=== PATIENT | male | born 1970 | race American Indian/Alaskan Native ===

== ENCOUNTER 2018-12-22 13:14 | Emergency (ER) | payer MEDICARE, OTHER ==
--- NOTE | 2018-12-22 14:14 | Emergency Department Report ---
ED General Adult HPI - General Chief complaint: Seizure Stated complaint: SEIZURE Time Seen by Provider: 12/22/18 14:09 Source: EMS Mode of arrival: Ambulatory Limitations: No Limitations - History of Present Illness Initial comments: 48-year-old male with history of CVA and a history of right-sided paralysis and loss of speech presents after father brought him to emergency department after patient fell out of chair after having a seizure episode. According to the patient's father patient has no prior history of seizure. Patient per father had a seizure was lasted 1-2 minutes and patient is laying on the floor shaking with blood, small. Patient had no fever prior. Patient was on his RIGHT side when he fell. Severity scale (0 -10): 0 - Related Data Allergies Allergy/AdvReac Type Severity Reaction Status Date / Time No Known Allergies Allergy Verified 12/22/18 14:20 ED Review of Systems ROS: Stated complaint: SEIZURE Other details as noted in HPI Comment: uNOBTAINABLE (SECONDARY TO PATIENT'S NON verbal status) Constitutional: denies: chills, fever Eyes: denies: eye pain, eye discharge, vision change ENT: denies: ear pain, throat pain Respiratory: denies: cough, shortness of breath, wheezing Cardiovascular: denies: chest pain, palpitations Endocrine: no symptoms reported Gastrointestinal: denies: abdominal pain, nausea, diarrhea Genitourinary: denies: urgency, dysuria Musculoskeletal: denies: back pain, joint swelling, arthralgia Skin: denies: rash, lesions Neurological: other (seizure) Psychiatric: denies: anxiety, depression Hematological/Lymphatic: denies: easy bleeding, easy bruising ED Past Medical Hx - Past Medical History Previous Medical History?: Yes Hx Hypertension: No Hx CVA: Yes Hx Heart Attack/AMI: No Hx Congestive Heart Failure: No Hx Diabetes: No Hx Deep Vein Thrombosis: No Hx Pulmonary Embolism: No Hx GERD: No Hx Liver Disease: No Hx Renal Disease: No Hx of Cancer: No Hx Sickle Cell Disease: No Hx Arthritis: No Hx Headaches / Migraines: No Hx Seizures: Yes Hx Kidney Stones: No Hx Psychiatric Treatment: No Hx Asthma: No Hx COPD: No Hx Tuberculosis: No Hx Dementia: No Hx HIV: No - Surgical History Past Surgical History?: No Hx Coronary Stent: No Hx Open Heart Surgery: No Hx Pacemaker: No Hx Internal Defibrillator: No Hx Cholecystectomy: No Hx Appendectomy: No Hx Breast Surgery: No - Social History Smoking Status: Never Smoker Substance Use Type: None ED Physical Exam - General Limitations: No Limitations General appearance: alert, in no apparent distress - Head Head exam: Present: normocephalic, other (ecchymosis noted in the right temporal region) - Eye Eye exam: Present: normal appearance - ENT ENT exam: Present: mucous membranes moist - Neck Neck exam: Present: normal inspection - Respiratory Respiratory exam: Present: normal lung sounds bilaterally. Absent: respiratory distress - Cardiovascular Cardiovascular Exam: Present: regular rate, normal rhythm. Absent: systolic murmur, diastolic murmur, rubs, gallop - GI/Abdominal GI/Abdominal exam: Present: soft, normal bowel sounds - Rectal Rectal exam: Present: deferred - Extremities Exam Extremities exam: Present: other (amputation of right lower extremity) - Back Exam Back exam: Present: normal inspection - Neurological Exam Neurological exam: Present: alert - Expanded Neurological Exam Expanded Neurological exam: Present: total aphasia, other Patient oriented to: Absent: person, place, time Motor strength exam: RUE: 3 (pateint has residual neuro deficit), LUE: 5, LLE: 5 Best Eye Response ([place]): (4) open spontaneously Best Motor Response ([place]): (6) obeys commands Best Verbal Response ([place]): (1) no verbal response [place] Total: 11 - Psychiatric Psychiatric exam: Present: normal affect, normal mood - Skin Skin exam: Present: warm, dry, intact, normal color. Absent: rash ED Course Vital Signs 12/22/18 12/22/18 13:41 18:03 Temperature 98.2 F Pulse Rate 70 58 L Respiratory 12 16 Rate Blood Pressure 92/61 Blood Pressure 98/61 115/61 [Right] O2 Sat by Pulse 100 97 Oximetry ED Medical Decision Making - Lab Data Result diagrams: 12/22/18 16:42 12/22/18 16:42 - Medical Decision Making Patient given IV fluids while here in emergency department. Patient given Keppra therapy. Patient has had no subsequent seizure activity while here in emergency department. Patient to be discharged to follow up with neurology as an outpatient. - Differential Diagnosis Dehydration; INtracranial bleed; Intracranial Mass; Rhabdomyolysis Critical care attestation.: If time is entered above; I have spent that time in minutes in the direct care of this critically ill patient, excluding procedure time. ED Disposition Clinical Impression: Seizure Disposition: DC-01 TO HOME OR SELFCARE Is pt being admited?: No Does the pt Need Aspirin: No Condition: Stable Instructions: Epilepsy (ED) Referrals: PRIMARY CARE, [Primary Care Provider] - 3-5 Days LEOPOLDO DILLARD MD [Staff Physician] - 3-5 Days Time of Disposition: 18:10 Print Language: PASHTO
[2018-12-22] MEDS ORDERED: DILAUDID IV ONE (14:15)
[2018-12-22] MEDS ORDERED: BENADRYL IV ONE (14:15)
[2018-12-22] MEDS ORDERED: KEPPRA 1,000 MG/NS 0.75% 100ML 1,000 MG/100 ML BAG IV ONE (14:33)
[2018-12-22] MEDS ORDERED: NACL 0.9% 1000 ML 1,000 ML IV ONE (14:33)
[2018-12-22] MEDS ORDERED: DILAUDID ONE (15:04)
[2018-12-22] MEDS ORDERED: BENADRYL ONE (15:04)
--- NOTE | 2018-12-22 16:00 | Cat Scan Report ---
CT HEAD WITHOUT CONTRAST INDICATION : seizure. TECHNIQUE: Axial imaging performed from the skull apex through the skull base without the use of con trast. Sagittal and coronal reformatted images. All CT scans at this location are performed using C T dose reduction for ALARA by means of automated exposure control. COMPARISON: None FINDINGS: Parenchyma: A large chronic infarct is identified throughout the left MCA distribution measuring up to 11 x 4 cm in axial plane. The remaining brain parenchyma demonstrates normal attenuation. No evide nce for hemorrhage, mass or extra-axial fluid collection. Ventricles: Ventricles are normal in size and appear symmetric. Bones: No acute osseous abnormality. Sinuses: Sinuses and mastoid air cells are clear. Soft tissues: Soft tissues including the orbits appear normal. IMPRESSION: Large chronic left MCA infarct. No acute intracranial process is identified. Signer Name: Bahman Rubin Jr, MD Signed: 12/22/2018 3:55 PM Workstation Name: [id number]
--- NOTE | 2018-12-22 16:21 | Cat Scan Report ---
CT FACE WITHOUT CONTRAST INDICATION: Facial pain. History of seizure. COMPARISON: No relevant prior imaging study available. TECHNIQUE: Axial, coronal and sagittal noncontrast CT imaging of the face was performed. All CT scans at this location are performed using CT dose reduction for ALARA by means of automated exposure cont rol. FINDINGS: Facial bones: No fracture or other significant abnormality. Paranasal sinuses: Multiple retention cyst/polyps are seen throughout the sinuses, particularly the r ight maxillary sinus. The mastoid air cells are clear. Orbits: No significant abnormality. Visualized images of the intracranial space: No significant abnormality. Additional findings: A large area of encephalomalacia is seen along the left cerebral hemisphere. IMPRESSION: 1. No acute abnormality of the face. 2. Additional findings as above. Signer Name: Romeo Singh MD Signed: 12/22/2018 4:17 PM Workstation Name: [id number]
[2018-12-22 16:52] LABS: Hematocrit 40.9 % (35.5-45.6); Hemoglobin 13.8 gm/dl (11.8-15.2); Mean Corpuscular HGB Conc 34 % (32-34); Mean Corpuscular Volume 89 fl (84-94); Platelet Count 237 K/mm3 (140-440); Red Cell Distribution Width 13.8 % (13.2-15.2)
[2018-12-22 17:17] LABS: Alanine Aminotransferase 9 units/L (7-56); Albumin 3.9 g/dL (3.9-5); BUN/Creatinine Ratio 16; Blood Urea Nitrogen 11 mg/dL (9-20); Calcium 8.8 mg/dL (8.4-10.2); Hemolysis Index 7
[2018-12-22 18:04] VITALS: BP 115/61
== END 2018-12-22 19:10 | disposition home or self-care (01) ==
LOC: ED 13:14
DX: R56.9 Unspecified convulsions (principal)
CPT/HCPCS: 36415; 70450; 70486; 80053; 82550; 85027; 96365; 99284; J1170; J1200; J1953; J7030; 80320; G0480

== ENCOUNTER 2019-04-05 20:01 | Observation (INO) | payer MEDICARE ==
[2019-04-05 20:57] LABS: Basophils # (Auto) 0.1 K/mm3 (0.0-0.1); Basophils % (Auto) 1.2 % (0.0-1.8); Eosinophils # (Auto) 0.1 K/mm3 (0.0-0.4); Eosinophils % (Auto) 0.5 % (0.0-4.3); Hematocrit 42.8 % (35.5-45.6); Hemoglobin 14.7 gm/dl (11.8-15.2); Lymphocytes # (Auto) 2.7 K/mm3 (1.2-5.4); Lymphocytes % (Auto) 26.4 % (13.4-35.0); Mean Corpuscular HGB Conc 34 % (32-34); Mean Corpuscular Volume 92 fl (84-94); Monocytes # (Auto) 0.5 K/mm3 (0.0-0.8); Monocytes % (Auto) 4.6 % (0.0-7.3); Platelet Count 341 K/mm3 (140-440); Red Blood Count 4.64 M/mm3 (3.65-5.03); Red Cell Distribution Width 13.2 % (13.2-15.2)
--- NOTE | 2019-04-05 21:13 | Consultation ---
History of Present Illness Consult date: 04/05/19 History of present illness: [facility] Date of Service: 04/05/2019 20:35:36 Impression: Seizure, not compliance with his Keppra Comments: Patient presented with his father in ambulance as he was on the floor when the father found him on the floor, he has hx of seizures. Last seizure was a month ago, he takes Keppra. Father said he missed his keppra and he does miss them regularly. Patient at baseline is aphasic and has right side weakness from old stroke in 2008 - Recommend load with Keppra 1500 mg now and continue home meds. - Seizure precautions. Metrics: Last Known Well: 04/05/2019 18:00:00 [facility] Notification Time: 04/05/2019 20:34:56 Arrival Time: 04/05/2019 20:20:00 Stamp Time: 04/05/2019 20:35:36 Time First Login Attempt: 04/05/2019 20:43:00 Video Start Time: 04/05/2019 20:43:00 Symptoms: sz NIHSS Start Assessment Time: 04/05/2019 20:54:00 Patient is not a candidate for tPA. Patient was not deemed candidate for tPA thrombolytics because of no new focal deficit. . Video End Time: 04/05/2019 21:02:20 CT head showed no acute hemorrhage or acute core infarct. CT head was reviewed. Presentation is not suggestive of Large Vessel Occlusive disease. ED Physician notified of diagnostic impression and management plan on 04/05/2019 21:02:21 Our recommendations are outlined below. Recommendations: Activate Stroke Protocol Admission/Order Set Stroke/Telemetry Floor Neuro Checks Bedside Swallow Eval DVT Prophylaxis IV Fluids, Normal Saline Head of Bed Below 30 Degrees Euglycemia and Avoid Hyperthermia (PRN Acetaminophen) Lipid Panel to Be Obtained, if Not Done in the Last Three Months Disposition: Follow up with Teleneurology Follow up Sign Out: Discussed with Emergency Department Provider History of Present Illness: Patient is a 48 year old Male. Patient was brought by EMS for symptoms of sz Patient presented with his father in ambulance as he was on the floor when the father found him on the floor, he has hx of seizures. Last seizure was a month ago, he takes Keppra. Father said he missed his keppra and he does miss them regularly. Patient at baseline is aphasic and has right side weakness from old stroke in 2007 CT head showed no acute hemorrhage or acute core infarct. CT head was reviewed. Examination: 1A: Level of Consciousness - Alert; keenly responsive + 0 1B: Ask Month and Age - Aphasic + 2 1C: Blink Eyes & Squeeze Hands - Performs Both Tasks + 0 2: Test Horizontal Extraocular Movements - Normal + 0 3: Test Visual Zee - No Visual Loss + 0 4: Test Facial Palsy (Use Grimace if Obtunded) - Normal symmetry + 0 5A: Test Left Arm Motor Drift - No Drift for 10 Seconds + 0 5B: Test Right Arm Motor Drift - No Effort Against [place] + 3 6A: Test Left Leg Motor Drift - No Drift for 5 Seconds + 0 6B: Test Right Leg Motor Drift - No Effort Against [place] + 3 7: Test Limb Ataxia (FNF/Heel-Roe) - No Ataxia + 0 8: Test Sensation - Normal; No sensory loss + 0 9: Test Language/Aphasia - Mute/Global Aphasia: No Usable Speech/Auditory Comprehension + 3 10: Test Dysarthria - Intubated/Unable to Test + 0 11: Test Extinction/Inattention - No abnormality + 0 NIHSS Score: 11 Patient was informed the Neurology Consult would happen via TeleHealth consult by way of interactive audio and video telecommunications and consented to receiving care in this manner. Due to the immediate potential for life-threatening deterioration due to underlying acute neurologic illness, I spent 35 minutes providing critical care. This time includes time for face to face visit via telemedicine, review of medical records, imaging studies and discussion of findings with providers, the patient and/or family. Dr Cesar [facility] Case [id number] Medications and Allergies Allergies Allergy/AdvReac Type Severity Reaction Status Date / Time No Known Allergies Allergy Verified 12/22/18 14:20 Home Medications Medication Instructions Recorded Confirmed Last Taken Type levETIRAcetam [Keppra] 500 mg PO BID #60 udc 12/22/18 Unknown Rx Physical Examination - Vital Signs Vital Signs: Vital Signs Temp Pulse Resp BP Pulse Ox 97.8 F 76 14 97/62 97 04/05/19 20:26 04/05/19 20:26 04/05/19 20:26 04/05/19 20:26 04/05/19 20:26 Results - Laboratory Findings CBC and BMP: 04/05/19 20:34
[2019-04-05 21:15] LABS: INR 1.08 (0.87-1.13)
[2019-04-05 21:16] LABS: Partial Thromboplastin Time 25.3 Sec. (24.2-36.6); Thrombin Time 15.5 Sec. (15.1-19.6)
[2019-04-05 21:17] LABS: Creatine Kinase MB 4.6 ng/mL (0.0-4.0)
[2019-04-05 21:19] LABS: Alanine Aminotransferase 11 units/L (7-56); Albumin 4.4 g/dL (3.9-5); BUN/Creatinine Ratio 12; Blood Urea Nitrogen 12 mg/dL (9-20); Calcium 9.6 mg/dL (8.4-10.2); Hemolysis Index 8
--- NOTE | 2019-04-05 21:28 | Cat Scan Report ---
CT head/brain wo con INDICATION / CLINICAL INFORMATION: 48 years Male; Stroke symptoms. TECHNIQUE: Routine CT head without contrast. All CT scans at this location are performed using CT dos e reduction for ALARA by means of automated exposure control. COMPARISON: The study is compared to the previous CT of 12/22/2018. FINDINGS: BRAIN / INTRACRANIAL CONTENTS: There is persistent old left MCA infarct with extensive encephalomalac ia which correlates with the previous study. There is associated mild ex vacuo dilatation of the left lateral ventricle. There is no clear CT evidence of acute intracranial hemorrhage or significant mas s effect. There is notable layering degeneration involving the left cerebral peduncle. ORBITS: No significant abnormality of visualized orbits. SINUSES / MASTOIDS: There is mild focal opacification within the posterior right ethmoid, left spheno id and inferior right maxillary sinuses. CRANIOCERVICAL JUNCTION: No significant abnormality. ADDITIONAL FINDINGS: None. IMPRESSION: 1. There is a persistent large old left MCA infarct with extensive encephalomalacia as described. 2. There is no CT ends of acute intracranial hemorrhage. The study was specified as code stroke and called emergently to the ER at 8:26 PM [facility] standard [facility]. Signer Name: Lito Rodriguez MD Signed: 04/05/2019 9:23 PM Workstation Name: [id number]
--- NOTE | 2019-04-05 22:55 | History and Physical Report ---
Medications and Allergies Allergies Allergy/AdvReac Type Severity Reaction Status Date / Time No Known Allergies Allergy Verified 12/22/18 14:20 Home Medications Medication Instructions Recorded Confirmed Last Taken Type levETIRAcetam [Keppra] 500 mg PO BID #60 c 12/22/18 Unknown Rx Exam - Constitutional Vitals: Temp Pulse Resp BP Pulse Ox 97.8 F 76 14 97/62 97 04/05/19 20:26 04/05/19 20:26 04/05/19 20:26 04/05/19 20:26 04/05/19 20:26 Results - Labs CBC & Chem 7: 04/05/19 20:34 04/05/19 20:34 Labs: Abnormal lab results 04/05/19 Range/Units 20:34 Sodium 134 L (137-145) mmol/L Potassium 3.4 L (3.6-5.0) mmol/L Chloride 94.1 L (98-107) mmol/L Carbon Dioxide 19 L (22-30) mmol/L Glucose 198 H (75-100) mg/dL Total Creatine Kinase 306 H (55-170) units/L CK-MB (CK-2) 4.6 H (0.0-4.0) ng/mL
--- NOTE | 2019-04-05 23:38 | Emergency Department Report ---
ED Altered Mental Status HPI - General Chief Complaint: Seizure Stated Complaint: SEIZURE Time Seen by Provider: 04/05/19 20:24 Source: patient Mode of arrival: Ambulatory Limitations: Physical Limitation - History of Present Illness Initial Comments: This is a 48-year-old male that presents with right-sided weakness and altered status. As per father patient had a syncopal episode and believes that it may be a seizure. Father stated that patient does have history of stroke. Father also stated that patient has not been taking his Keppra. Denies any other complaints or injuries. Denies any recent travels. Denies any vomiting. Currently the patient is alert with some altered mental status. Patient denies any chest pain, shortness of breath, fever, chills, nausea vomiting. Patient does have a history of stroke with left-sided weakness as well as unable to communicate. MD Complaint: altered mental status, confusion -: This afternoon Associated Symptoms: syncope. denies: chest pain, cough, diaphoresis, fever/chills, headaches, loss of appetite, malaise, nausea/vomiting, rash, seizure, shortness of breath, weakness, foul smelling urine, difficulty walking, diarrhea, incontinence - Related Data Previous Rx's Medication Instructions Recorded Last Taken Type levETIRAcetam [Keppra] 500 mg PO BID #60 udc 12/22/18 Unknown Rx Allergies Allergy/AdvReac Type Severity Reaction Status Date / Time No Known Allergies Allergy Verified 12/22/18 14:20 ED Review of Systems ROS: Stated complaint: SEIZURE Other details as noted in HPI Constitutional: denies: fever ENT: denies: throat pain, congestion Respiratory: denies: cough, shortness of breath, wheezing Cardiovascular: denies: chest pain Gastrointestinal: denies: vomiting ED Past Medical Hx - Past Medical History Previous Medical History?: Yes Hx Hypertension: No Hx CVA: Yes Hx Heart Attack/AMI: No Hx Congestive Heart Failure: No Hx Diabetes: No Hx Deep Vein Thrombosis: No Hx Pulmonary Embolism: No Hx GERD: No Hx Liver Disease: No Hx Renal Disease: No Hx Sickle Cell Disease: No Hx Arthritis: No Hx Headaches / Migraines: No Hx Seizures: Yes Hx Kidney Stones: No Hx Psychiatric Treatment: No Hx Asthma: No Hx COPD: No Hx Tuberculosis: No Hx Dementia: No Hx HIV: No - Surgical History Past Surgical History?: Yes Hx Coronary Stent: No Hx Open Heart Surgery: No Hx Pacemaker: No Hx Internal Defibrillator: No Hx Cholecystectomy: No Hx Appendectomy: No Hx Breast Surgery: No - Social History Smoking Status: Unknown if ever smoked - Medications Home Medications: Home Medications Medication Instructions Recorded Confirmed Last Taken Type levETIRAcetam [Keppra] 500 mg PO BID #60 c 12/22/18 Unknown Rx ED Physical Exam - General Limitations: Physical Limitation General appearance: alert - Head Head exam: Present: atraumatic - Eye Eye exam: Present: normal appearance, PERRL, EOMI - Neck Neck exam: Present: normal inspection, full ROM. Absent: tenderness, meningismus, lymphadenopathy - Respiratory Respiratory exam: Present: normal lung sounds bilaterally. Absent: respiratory distress, wheezes, rales, rhonchi, stridor, chest wall tenderness, accessory muscle use, decreased breath sounds, prolonged expiratory - Cardiovascular Cardiovascular Exam: Present: regular rate, normal rhythm, normal heart sounds. Absent: irregular rhythm, systolic murmur, diastolic murmur, rubs, gallop - GI/Abdominal GI/Abdominal exam: Present: soft, rigid, normal bowel sounds. Absent: distended, tenderness, guarding, rebound - Extremities Exam Extremities exam: Present: normal capillary refill, other (right sided weakness) - Neurological Exam Neurological exam: Present: alert, altered - Skin Skin exam: Present: warm, dry, intact, normal color. Absent: rash - Assessment Assessment Interval: Baseline - Level of Consciousness 1a. Level of Consciousness: alert/keenly responsive - LOC Questions 1b. LOC Questions: aphasic - LOC Command 1c. LOC Commands: performs tasks correctly - Best Gaze 2. Best Gaze: normal - Visual 3. Visual: no visual loss - Facial Palsy 4. Facial Palsy: normal symmetrical movement - Motor Arm 5a. Motor Arm Left: no drift 5b. Motor Arm Right: no drift - Motor Leg 6a. Motor Leg Left: no gravity effort 6b. Motor Leg Right: no gravity effort - Limb Ataxia 7. Limb Ataxia: absent - Sensory 8. Sensory: normal - Best Language 9. Best Language: mute/global aphasia - Dysarthria 10. Dysarthria: normal - Extinction and Inattention 11. Extinction/Inattention: no abnormality - Scoring Total Score: 11 Stroke Severity: Moderate Stroke ED Course Vital Signs 04/05/19 04/05/19 04/05/19 20:22 20:26 20:30 Temperature 97.8 F Pulse Rate 76 77 Respiratory 14 14 Rate Blood Pressure 97/62 103/53 O2 Sat by Pulse 94 97 95 Oximetry 04/05/19 04/05/19 04/05/19 20:33 21:01 21:30 Temperature Pulse Rate 83 75 Respiratory 16 14 21 Rate Blood Pressure 126/73 113/74 O2 Sat by Pulse 98 100 94 Oximetry 04/05/19 04/05/19 04/05/19 22:00 22:30 23:00 Temperature Pulse Rate 66 70 74 Respiratory 20 17 14 Rate Blood Pressure 122/77 121/76 101/70 O2 Sat by Pulse 96 96 Oximetry 04/05/19 04/06/19 04/06/19 23:30 00:00 00:21 Temperature Pulse Rate 72 70 71 Respiratory 19 18 17 Rate Blood Pressure 98/64 103/64 103/64 O2 Sat by Pulse 90 Oximetry 04/06/19 04/06/19 04/06/19 00:31 00:41 00:51 Temperature Pulse Rate 70 71 80 Respiratory 17 20 13 Rate Blood Pressure 112/70 112/70 112/70 O2 Sat by Pulse Oximetry 04/06/19 04/06/19 01:00 01:10 Temperature Pulse Rate 73 80 Respiratory 20 18 Rate Blood Pressure 105/63 105/63 O2 Sat by Pulse Oximetry - Lab Data Result diagrams: 04/05/19 20:34 04/05/19 20:34 Lab Results 04/05/19 04/05/19 04/05/19 Range/Units 20:34 20:34 20:34 WBC 10.1 (4.5-11.0) K/mm3 RBC 4.64 (3.65-5.03) M/mm3 Hgb 14.7 (11.8-15.2) gm/dl Hct 42.8 (35.5-45.6) % MCV 92 (84-94) fl MCH 32 (28-32) pg MCHC 34 (32-34) % RDW 13.2 (13.2-15.2) % Plt Count 341 (140-440) K/mm3 Lymph % (Auto) 26.4 (13.4-35.0) % [place] % (Auto) 4.6 (0.0-7.3) % Eos % (Auto) 0.5 (0.0-4.3) % Baso % (Auto) 1.2 (0.0-1.8) % Lymph # 2.7 (1.2-5.4) K/mm3 [place] # 0.5 (0.0-0.8) K/mm3 Eos # 0.1 (0.0-0.4) K/mm3 Baso # 0.1 (0.0-0.1) K/mm3 Seg Neutrophils % 67.3 (40.0-70.0) % Seg Neutrophils # 6.8 (1.8-7.7) K/mm3 PT 14.1 (12.2-14.9) Sec. INR 1.08 (0.87-1.13) APTT 25.3 (24.2-36.6) Sec. Thrombin Time 15.5 (15.1-19.6) Sec. Sodium 134 L (137-145) mmol/L Potassium 3.4 L (3.6-5.0) mmol/L Chloride 94.1 L (98-107) mmol/L Carbon Dioxide 19 L (22-30) mmol/L Anion Gap 24 mmol/L BUN 12 (9-20) mg/dL Creatinine 1.0 (0.8-1.5) mg/dL Estimated GFR > 60 ml/min BUN/Creatinine Ratio 12 % Glucose 198 H (75-100) mg/dL Calcium 9.6 (8.4-10.2) mg/dL Total Bilirubin 0.30 (0.1-1.2) mg/dL AST 18 (5-40) units/L ALT 11 (7-56) units/L Alkaline Phosphatase 106 (35-129) units/L Total Creatine Kinase 306 H (55-170) units/L CK-MB (CK-2) 4.6 H (0.0-4.0) ng/mL CK-MB (CK-2) Rel Index 1.5 (0-4) Troponin T < 0.010 (0.00-0.029) ng/mL Total Protein 7.8 (6.3-8.2) g/dL Albumin 4.4 (3.9-5) g/dL Albumin/Globulin Ratio 1.3 % Plasma/Serum Alcohol (0-0.07) % 04/05/19 Range/Units 20:34 WBC (4.5-11.0) K/mm3 RBC (3.65-5.03) M/mm3 Hgb (11.8-15.2) gm/dl Hct (35.5-45.6) % MCV (84-94) fl MCH (28-32) pg MCHC (32-34) % RDW (13.2-15.2) % Plt Count (140-440) K/mm3 Lymph % (Auto) (13.4-35.0) % [place] % (Auto) (0.0-7.3) % Eos % (Auto) (0.0-4.3) % Baso % (Auto) (0.0-1.8) % Lymph # (1.2-5.4) K/mm3 [place] # (0.0-0.8) K/mm3 Eos # (0.0-0.4) K/mm3 Baso # (0.0-0.1) K/mm3 Seg Neutrophils % (40.0-70.0) % Seg Neutrophils # (1.8-7.7) K/mm3 PT (12.2-14.9) Sec. INR (0.87-1.13) APTT (24.2-36.6) Sec. Thrombin Time (15.1-19.6) Sec. Sodium (137-145) mmol/L Potassium (3.6-5.0) mmol/L Chloride (98-107) mmol/L Carbon Dioxide (22-30) mmol/L Anion Gap mmol/L BUN (9-20) mg/dL Creatinine (0.8-1.5) mg/dL Estimated GFR ml/min BUN/Creatinine Ratio % Glucose (75-100) mg/dL Calcium (8.4-10.2) mg/dL Total Bilirubin (0.1-1.2) mg/dL AST (5-40) units/L ALT (7-56) units/L Alkaline Phosphatase (35-129) units/L Total Creatine Kinase (55-170) units/L CK-MB (CK-2) (0.0-4.0) ng/mL CK-MB (CK-2) Rel Index (0-4) Troponin T (0.00-0.029) ng/mL Total Protein (6.3-8.2) g/dL Albumin (3.9-5) g/dL Albumin/Globulin Ratio % Plasma/Serum Alcohol < 0.01 (0-0.07) % - Medical Decision Making 48-year-old male that presents with suspected stroke. Patient is stable and was examined by me and Dr. Rocha. Labs obtained. CT scan obtained. Neurologist has been consulted and agrees for admission. Patient is admitted with Dr. Kraus (hospitalist). As per neurologist Recommendations: Activate Stroke Protocol Admission/Order Set Stroke/Telemetry Floor Neuro Checks Bedside Swallow Eval DVT Prophylaxis IV Fluids, Normal Saline Head of Bed Below 30 Degrees Euglycemia and Avoid Hyperthermia (PRN Acetaminophen) At time of admission, the patient does not seem toxic or ill in appearance. No acute signs of distress noted. Critical care attestation.: If time is entered above; I have spent that time in minutes in the direct care of this critically ill patient, excluding procedure time. ED Disposition Clinical Impression: CVA (cerebral vascular accident) Qualifiers: CVA mechanism: unspecified Qualified Code(s): I63.9 - Cerebral infarction, unspecified Disposition: DC-09 OP ADMIT IP TO THIS HOSP Is pt being admited?: Yes Condition: Stable
--- NOTE | 2019-04-05 23:39 | History and Physical Report ---
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 History is per the dad who states that the patient slid out of the chair and he found him on the floor. He states that the patient had a seizure and he could tell from his appearance that he was a little confused. There was no loss of consciousness. He stated that the patient has not been taking his Keppra. He was loaded with Keppra in the emergency room, seen by neurology who recommended that the patient get a stroke work-up. Review of systems is unobtainable PAST MEDICAL HISTORY: CVA with residual right-sided weakness and aphasia, seizure PAST SURGICAL HISTORY: Right leg amputation SOCIAL HISTORY: denies a tobacco, drugs, alcohol FAMILY HISTORY:Hypertension Medications and Allergies Allergies Allergy/AdvReac Type Severity Reaction Status Date / Time No Known Allergies Allergy Verified 12/22/18 14:20 Home Medications Medication Instructions Recorded Confirmed Last Taken Type levETIRAcetam [Keppra] 500 mg PO BID #60 c 12/22/18 Unknown Rx Active Meds: Active Medications Enoxaparin Sodium (Enoxaparin) 40 mg SUB-Q QDAY@1000 ADAM Exam - Physical Exam Narrative exam: Gen. appearance: Patient lying in bed, no apparent distress HEENT: Normocephalic, atraumatic, pupils equally round and reactive to light, eyes are , extraocular movement intact, and no sclericterus,. No JVD or thyrom egaly or nodule,neck supple, no carotid bruit ,mucous membranes moist, no exudate or erythema Heart: S1, S2, regular rate and rhythm Lungs: Clear bilaterally, breathing comfortable Abdomen: Positive bowel sounds, non-tender, nondistended, no organomegaly Extremity:right leg amptutation, no edema cyanosis, clubbing Skin: no rash, dry, warm Neuro: Cranial nerves 2-12 intact, motor- LUE/LLE 5/5, right side weakness and no sensory intact - Constitutional Vitals: Temp Pulse Resp BP Pulse Ox 97.8 F 76 14 97/62 97 04/05/19 20:26 04/05/19 20:26 04/05/19 20:26 04/05/19 20:26 04/05/19 20:26 Results - Labs CBC & Chem 7: 04/05/19 20:34 04/05/19 20:34 Labs: Abnormal lab results 04/05/19 Range/Units 20:34 Sodium 134 L (137-145) mmol/L Potassium 3.4 L (3.6-5.0) mmol/L Chloride 94.1 L (98-107) mmol/L Carbon Dioxide 19 L (22-30) mmol/L Glucose 198 H (75-100) mg/dL Total Creatine Kinase 306 H (55-170) units/L CK-MB (CK-2) 4.6 H (0.0-4.0) ng/mL - Imaging and Cardiology CT Scan - head: report reviewed Assessment and Plan Assessment Possible seizure, acute on chronic Continue Keppra, IV Ativan as needed obtain MRI as recommended by neurology The patient has no new neurological symptoms Consult inpatient neurology, physical therapy start aspirin, statin, continue outpatient medications H/O cva complicated by right right sided weakness and aphasia, stable DVT prophylaxis
[2019-04-05] MEDS ORDERED: ONDANSETRON 4 MG/2 ML INJ IV PRN (23:40)
[2019-04-05] MEDS ORDERED: ACETAMINOPHEN 325 MG TAB PO PRN (23:40)
[2019-04-06 07:37] LABS: Basophils % (Auto) 0.2 % (0.0-1.8); Eosinophils % (Auto) 0.1 % (0.0-4.3); Hematocrit 43.8 % (35.5-45.6); Hemoglobin 14.7 gm/dl (11.8-15.2); Lymphocytes # (Auto) 1.9 K/mm3 (1.2-5.4); Lymphocytes % (Auto) 19.3 % (13.4-35.0); Mean Corpuscular HGB Conc 34 % (32-34); Mean Corpuscular Volume 92 fl (84-94); Monocytes % (Auto) 10.1 % (0.0-7.3); Platelet Count 258 K/mm3 (140-440); Red Blood Count 4.78 M/mm3 (3.65-5.03); Red Cell Distribution Width 13.1 % (13.2-15.2)
[2019-04-06 08:21] LABS: BUN/Creatinine Ratio 14; Blood Urea Nitrogen 11 mg/dL (9-20); Calcium 9.1 mg/dL (8.4-10.2); Hemolysis Index 86
[2019-04-06] MEDS: ASPIRIN 325 MG TAB PO SCH (09:29)
[2019-04-06] MEDS: levETIRAcetam 500 MG/5 ML ORAL LIQD PO SCH ×2 (09:29→21:23)
[2019-04-06] MEDS: ENOXAPARIN 40 MG/0.4 ML INJ SUB-Q SCH (09:29)
[2019-04-06] MEDS ORDERED: ENOXAPARIN 30 MG/0.3 ML INJ SUB-Q SCH (10:00)
[2019-04-06 15:10] LABS: Amphetamine Screen,Urine PRESUMPTIVE NEGATIVE; Benzodiazepines Screen,Urine PRESUMPTIVE NEGATIVE; Cocaine Screen,Urine PRESUMPTIVE NEGATIVE; Methadone Screen,Urine PRESUMPTIVE NEGATIVE; Opiate Screen,Urine PRESUMPTIVE NEGATIVE
[2019-04-06 15:24] LABS: Cannabinoid Screen,Urine PRESUMPTIVE POSITIVE
[2019-04-06 15:39] LABS: Bilirubin,Urine NEG (Negative); Blood,Urine NEG (Negative); Color,Urine Yellow (Yellow); Mucus,Urine 3+ /HPF; Protein,Urine <15 mg/dL mg/dL (Negative); Urobilinogen,Urine < 2.0 mg/dL (<2.0)
--- NOTE | 2019-04-06 17:09 | Consultation ---
History of Present Illness Consult date: 04/06/19 Reason for Consult: seizure Chief complaint: Seizure History of present illness: Patient is a 48-year-old woman with a history of seizures, history of CVA with residual aphasia and right-sided weakness. He presents with a seizure at home, and was found to be in postictal state. Patient was reportedly with his father at home, when his father discovered that he was passed out, and confused. Patient later began to wake up, however remained confused. His last reported seizure was about one month ago. Patient is non-compliant with keppra. Past History Past Medical History: other (history of seizures, history of CVA with residual aphasia and right-sided weakness) Social history: lives with family Family history: no significant family history Medications and Allergies Allergies Allergy/AdvReac Type Severity Reaction Status Date / Time No Known Allergies Allergy Verified 12/22/18 14:20 Home Medications Medication Instructions Recorded Confirmed Last Taken Type levETIRAcetam [Keppra] 500 mg PO BID #60 udc 12/22/18 04/06/19 Unknown Rx Active Meds: Active Medications Acetaminophen (Tylenol) 650 mg PO Q4H PRN PRN Reason: Pain MILD(1-3)/Fever >100.5/JIN Aspirin (Aspirin) 325 mg PO QDAY [facility] Last Admin: 04/06/19 09:29 Dose: 325 mg Documented by: Enoxaparin Sodium (Enoxaparin) 40 mg SUB-Q QDAY@1000 [facility] Last Admin: 04/06/19 09:29 Dose: 40 mg Documented by: Levetiracetam (Keppra) 500 mg PO BID [facility] Last Admin: 04/06/19 09:29 Dose: 500 mg Documented by: Ondansetron HCl (Zofran) 4 mg IV Q8H PRN PRN Reason: Nausea And Vomiting Pravastatin Sodium (Pravachol) 40 mg PO QHS [facility] Sodium Chloride (Sodium Chloride Flush Syringe 10 Ml) 10 ml IV BID [facility] Last Admin: 04/06/19 09:29 Dose: 10 ml Documented by: Sodium Chloride (Sodium Chloride Flush Syringe 10 Ml) 10 ml IV PRN PRN PRN Reason: LINE FLUSH Review of Systems ROS unobtainable: due to mental status (patient is aphasic at baseline) Physical Examination - Vital Signs Vital Signs: Vital Signs Pulse Ox 94 04/05/19 20:22 - Physical Exam Narrative exam: Patient is alert, awake, aphasic at baseline, follows complex commands on LUE. PERRL, EOMI, VFF, no facial weakness noted, tongue midline, b/l intact to LT. Noted to have significant aphasia. RUE 1/5, RLE AKA noted, LUE/LLE 5/5. B/l intact to LT. 3+ reflexes on RUE, 2+ on LUE/LLE. - Constitutional General appearance: comfortable - EENT EENT: Present: ATNC, PERRL, mucous membranes moist - Respiratory Respiratory: Present: lungs clear, normal breath sounds - Cardiovascular Cardiovascular: Present: regular rate, normal S1, normal S2 Extremities: Present: no clubbing, cyanosis, no inflammation - Gastrointestinal Gastrointestinal: Present: normoactive bowel sounds, soft, non-tender - Integumentary Integumentary: Present: normal - Musculoskeletal Musculoskeletal: Present: no fluid collection, no pain Results - Laboratory Findings CBC and BMP: 04/06/19 07:05 04/06/19 07:05 Abnormal Lab Findings: Abnormal Labs 04/05/19 04/06/19 04/06/19 20:34 07:05 07:05 RDW 13.1 L Prentiss % (Auto) 10.1 H Prentiss # 1.0 H Seg Neutrophils % 70.3 H Sodium 134 L Potassium 3.4 L Chloride 94.1 L Carbon Dioxide 19 L 18 L Glucose 198 H Total Creatine Kinase 306 H CK-MB (CK-2) 4.6 H Assessment and Plan Patient is a 48-year-old woman with a history of seizures, history of CVA with residual aphasia and right-sided weakness, who presents with a seizure at home and was found to be in a postictal state. According patient's clinical findings, it is likely that he's had a seizure. Plan: 1. Seizure: - CT head: chronic Lt. MCA territory infarct - Patient non-compliant with keppra - Based on patient's weight, recommend increase keppra to 750mg BID. Can be increased later on if patient is having seizures when compliant on this dose - UA not indicative of UTI - If patient has seizure lasting more than 2 minutes, recommend giving ativan 1mg IV stat. If seizure does not resolve 2 minutes after first dose, can repeat x1. 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 - Recommend for patient to follow up with neurology outpatient in 3-4 weeks. -Will sign off, as I am not covering neurology service over the weekend. Recommend consult neurologist covering service over the weekend for further neurologic monitoring and management. Thank you for allowing me to take part in the care of this patient. Marcel Felix MD Neurology
--- NOTE | 2019-04-06 17:24 | Progress Note ---
Assessment and Plan Assessment and plan: Breakthrough seizures Continue Keppra, IV Ativan as needed obtain MRI as recommended by neurology Consulted inpatient neurology, physical therapy started aspirin, statin, continue outpatient medications history of stroke H/O cva complicated by right right sided weakness and aphasia, stable DVT prophylaxis History Interval history: Seizures Hospitalist Physical - Physical exam Narrative exam: GEN: Not in acute distress, lying in bed, HEENT: Normocephalic, atraumatic, Neck: supple, No JVD Lungs: Clear to auscultation bilat, no wheeze, heart;S1 and S2 reg, no murmurs, rubs or gallop Abd:soft, non tender, non distended, normal bowel sounds Ext: No edema, no clubbing, no cyanosis Neuro: Awake, alert,aphasia from previous stroke - Constitutional Vitals: Temp Pulse Resp BP Pulse Ox 98.2 F 67 18 117/76 98 04/06/19 17:00 04/06/19 17:00 04/06/19 17:00 04/06/19 17:00 04/06/19 17:00 Results - Labs CBC & Chem 7: 04/06/19 07:05 04/06/19 07:05 Labs: Laboratory Last Values WBC 9.8 K/mm3 (4.5-11.0) 04/06/19 07:05 RBC 4.78 M/mm3 (3.65-5.03) 04/06/19 07:05 Hgb 14.7 gm/dl (11.8-15.2) 04/06/19 07:05 Hct 43.8 % (35.5-45.6) 04/06/19 07:05 MCV 92 fl (84-94) 04/06/19 07:05 MCH 31 pg (28-32) 04/06/19 07:05 MCHC 34 % (32-34) 04/06/19 07:05 RDW 13.1 % (13.2-15.2) L 04/06/19 07:05 Plt Count 258 K/mm3 (140-440) 04/06/19 07:05 Lymph % (Auto) 19.3 % (13.4-35.0) 04/06/19 07:05 [place] % (Auto) 10.1 % (0.0-7.3) H 04/06/19 07:05 Eos % (Auto) 0.1 % (0.0-4.3) 04/06/19 07:05 Baso % (Auto) 0.2 % (0.0-1.8) 04/06/19 07:05 Lymph # 1.9 K/mm3 (1.2-5.4) 04/06/19 07:05 [place] # 1.0 K/mm3 (0.0-0.8) H 04/06/19 07:05 Eos # 0.0 K/mm3 (0.0-0.4) 04/06/19 07:05 Baso # 0.0 K/mm3 (0.0-0.1) 04/06/19 07:05 Seg Neutrophils % 70.3 % (40.0-70.0) H 04/06/19 07:05 Seg Neutrophils # 6.9 K/mm3 (1.8-7.7) 04/06/19 07:05 PT 14.1 Sec. (12.2-14.9) 04/05/19 20:34 INR 1.08 (0.87-1.13) 04/05/19 20:34 APTT 25.3 Sec. (24.2-36.6) 04/05/19 20:34 Thrombin Time 15.5 Sec. (15.1-19.6) 04/05/19 20:34 Sodium 139 mmol/L (137-145) 04/06/19 07:05 Potassium 4.1 mmol/L (3.6-5.0) D 04/06/19 07:05 Chloride 103.6 mmol/L (98-107) 04/06/19 07:05 Carbon Dioxide 18 mmol/L (22-30) L 04/06/19 07:05 Anion Gap 22 mmol/L 04/06/19 07:05 BUN 11 mg/dL (9-20) 04/06/19 07:05 Creatinine 0.8 mg/dL (0.8-1.5) 04/06/19 07:05 Estimated GFR > 60 ml/min 04/06/19 07:05 BUN/Creatinine Ratio 14 % 04/06/19 07:05 Glucose 98 mg/dL (75-100) 04/06/19 07:05 Calcium 9.1 mg/dL (8.4-10.2) 04/06/19 07:05 Total Bilirubin 0.30 mg/dL (0.1-1.2) 04/05/19 20:34 AST 18 units/L (5-40) 04/05/19 20:34 ALT 11 units/L (7-56) 04/05/19 20:34 Alkaline Phosphatase 106 units/L (35-129) 04/05/19 20:34 Total Creatine Kinase 306 units/L (55-170) H 04/05/19 20:34 CK-MB (CK-2) 4.6 ng/mL (0.0-4.0) H 04/05/19 20:34 CK-MB (CK-2) Rel Index 1.5 (0-4) 04/05/19 20:34 Troponin T < 0.010 ng/mL (0.00-0.029) 04/05/19 20:34 Total Protein 7.8 g/dL (6.3-8.2) 04/05/19 20:34 Albumin 4.4 g/dL (3.9-5) 04/05/19 20:34 Albumin/Globulin Ratio 1.3 % 04/05/19 20:34 Urine Color Yellow (Yellow) 04/06/19 14:50 Urine Turbidity Clear (Clear) 04/06/19 14:50 Urine pH 5.0 (5.0-7.0) 04/06/19 14:50 Ur Specific [place] 1.028 (1.003-1.030) 04/06/19 14:50 Urine Protein <15 mg/dl mg/dL (Negative) 04/06/19 14:50 Urine Glucose (UA) Neg mg/dL (Negative) 04/06/19 14:50 Urine Ketones Neg mg/dL (Negative) 04/06/19 14:50 Urine Blood Neg (Negative) 04/06/19 14:50 Urine Nitrite Neg (Negative) 04/06/19 14:50 Urine Bilirubin Neg (Negative) 04/06/19 14:50 Urine Urobilinogen < 2.0 mg/dL (<2.0) 04/06/19 14:50 Ur Leukocyte Esterase Neg (Negative) 04/06/19 14:50 Urine WBC (Auto) 3.0 /HPF (0.0-6.0) 04/06/19 14:50 Urine RBC (Auto) 4.0 /HPF (0.0-6.0) 04/06/19 14:50 U Epithel Cells (Auto) < 1.0 /HPF (0-13.0) 04/06/19 14:50 Urine Mucus 3+ /HPF 04/06/19 14:50 Urine Opiates Screen Presumptive negative 04/06/19 14:50 Urine Methadone Screen Presumptive negative 04/06/19 14:50 Ur Barbiturates Screen Presumptive negative 04/06/19 14:50 Ur Phencyclidine Scrn Presumptive negative 04/06/19 14:50 Ur Amphetamines Screen Presumptive negative 04/06/19 14:50 U Benzodiazepines Scrn Presumptive negative 04/06/19 14:50 Urine Cocaine Screen Presumptive negative 04/06/19 14:50 U Marijuana (THC) Screen Presumptive positive 04/06/19 14:50 Drugs of Abuse Note Disclamer 04/06/19 14:50 Plasma/Serum Alcohol < 0.01 % (0-0.07) 04/05/19 20:34 Blood Type B POSITIVE 04/05/19 20:47 Antibody Screen Positive 04/05/19 20:47 Direct Antiglob Test Positive 04/05/19 20:47 MERYL (IgG-AHG) Positive 04/05/19 20:47 MERYL, Poly Interpret Positive 04/05/19 20:47 MERYL, Anti-C3 Negative 04/05/19 20:47 Active Medications - Current Medications Current Medications: Generic Name Dose Route Start Last Admin Trade Name Freq PRN Reason Stop Dose Admin Acetaminophen 650 mg 04/05/19 23:40 Tylenol PO Q4H PRN Pain MILD(1-3)/Fever >100.5/JIN Aspirin 325 mg 04/06/19 10:00 04/06/19 09:29 Aspirin PO 325 mg QDAY ADAM Administration Enoxaparin Sodium 40 mg 04/06/19 10:00 04/06/19 09:29 Enoxaparin SUB-Q 40 mg QDAY@1000 ADAM Administration Levetiracetam 500 mg 04/06/19 10:00 04/06/19 09:29 Keppra PO 500 mg BID ADAM Administration Ondansetron HCl 4 mg 04/05/19 23:40 Zofran IV Q8H PRN Nausea And Vomiting Pravastatin Sodium 40 mg 04/06/19 22:00 Pravachol PO QHS ADAM Sodium Chloride 10 ml 04/06/19 10:00 04/06/19 09:29 Sodium Chloride Flush Syringe 10 Ml IV 10 ml BID ADAM Administration Sodium Chloride 10 ml 04/05/19 23:40 Sodium Chloride Flush Syringe 10 Ml IV PRN PRN LINE FLUSH Nutrition/Malnutrition Assess - Dietary Evaluation Nutrition/Malnutrition Findings: Nutrition Notes Start: 04/06/19 11:32 Freq: Status: Active Protocol: Document 04/06/19 11:32 AP (Rec: 04/06/19 11:34 AP [id number]) Co-Sign 04/06/19 11:32 LP Nutrition Notes Initial or Follow up Brief Note Subjective/Other Information RN screen for skin risk. Dereck score 17. Pt consumed 100% of bfast. Pt was very irratated with my presence, did not ask any further questions. No wasting or wounds noted. Nutrition Intervention Revisit per MD consult or patient Sign Off request:
[2019-04-06] MEDS ORDERED: PRAVASTATIN 40 MG TAB PO SCH (22:00)
[2019-04-07] MEDS: ENOXAPARIN 40 MG/0.4 ML INJ SUB-Q SCH (09:32)
[2019-04-07] MEDS: ASPIRIN 325 MG TAB PO SCH (09:32)
[2019-04-07] MEDS ORDERED: levETIRAcetam 500 MG TAB PO SCH (10:00)
[2019-04-07 11:59] VITALS: BP 105/63
--- NOTE | 2019-04-07 13:11 | Discharge Summary ---
Providers - Providers Date of Admission: 04/05/19 22:55 Date of discharge: 04/07/19 Attending physician: ROBERT ROBLEDO 04/05/19 23:40 Consult to Physician [CONS] Routine Comment: Consulting Provider: TWAN NAIDU Physician Instructions: Reason For Exam: sz 04/06/19 00:55 Physical Therapy Evaluation and Treat [CONS] Routine Comment: Reason For Exam: cva 04/06/19 17:31 Physical Therapy Evaluation and Treat [CONS] Stat Comment: Reason For Exam: To assistance pt with generalized weakness. Primary care physician: MARCOS BAUTISTA Hospitalization Condition: Fair Disposition: DC-01 TO HOME OR SELFCARE Core Measure Documentation - Palliative Care Palliative Care/ Comfort Measures: Not Applicable - Core Measures Any of the following diagnoses?: none Exam - Constitutional Vitals: Temp Pulse Resp BP Pulse Ox 98.1 F 60 18 105/63 96 04/07/19 11:58 04/07/19 11:58 04/07/19 11:58 04/07/19 11:58 04/07/19 12:25 Plan Activity: advance as tolerated Diet: low fat, low cholesterol, low salt Plan of Treatment: 1.Follow up with PCP in 1 week. Follow up with: MARCOS BAUTISTA MD [Primary Care Provider] - 7 Days
== END 2019-04-07 16:08 | disposition home or self-care (01) ==
LOC: ED 20:01 → 4A 22:55
PROVIDERS: ADMIT Internal Medicine; ATTEND Internal Medicine
DX: I63.9 Cerebral infarction, unspecified (principal); R53.1 Weakness; R41.82 Altered mental status, unspecified
CPT/HCPCS: 36415; 70450; 80048; 80053; 80307; 81001; 82550; 82553; 82962; 84484; 85025; 85610; 85670; 85730; 86850; 86860; 86870; 86880; 86900; 86901; 93005; 93010; 94760; 96372; 97162; 99284; A9270; G0378; J1650; 80320; G0480

== ENCOUNTER 2019-08-29 11:40 | Emergency (ER) | payer MEDICARE ==
--- NOTE | 2019-08-29 11:47 | Emergency Department Report ---
ED Seizure HPI - General Stated Complaint: SEIZURE Time Seen by Provider: 08/29/19 11:43 Source: patient, EMS Mode of arrival: Stretcher Limitations: Altered Mental Status - History of Present Illness Initial Comments: Patient is a 48-year-old male that presents emergency room with seizure activity. Patient brought in by EMS. History per EMS. Patient is nonverbal from a stroke. Patient is also postictal. Patient answering some questions with hand signals and shaking of his head. Patient denies pain. Patient has a history of seizure and is compliant with his Keppra. Patient's family witnessed a seizure and called EMS. MD Complaint: seizure -: Sudden Description of Episode: loss of consciousness, tonic-clonic movement Witnessed:: Yes Trauma: No Seizure History: known seizure disorder, compliant with medication Place: home Possible Precipitating Event: none - Related Data Previous Rx's Medication Instructions Recorded Last Taken Type levETIRAcetam [Keppra TAB] 750 mg PO BID #60 tablet 04/07/19 Unknown Rx Allergies Allergy/AdvReac Type Severity Reaction Status Date / Time No Known Allergies Allergy Verified 12/22/18 14:20 ED Review of Systems ROS: Stated complaint: SEIZURE Other details as noted in HPI Comment: Unobtainable due to pts medical conditions ED Past Medical Hx - Past Medical History Previous Medical History?: Yes Hx Hypertension: No Hx CVA: Yes Hx Heart Attack/AMI: No Hx Congestive Heart Failure: No Hx Diabetes: No Hx Deep Vein Thrombosis: No Hx Pulmonary Embolism: No Hx GERD: No Hx Liver Disease: No Hx Renal Disease: No Hx Sickle Cell Disease: No Hx Arthritis: No Hx Headaches / Migraines: No Hx Seizures: Yes Hx Kidney Stones: No Hx Psychiatric Treatment: No Hx Asthma: No Hx COPD: No Hx Tuberculosis: No Hx Dementia: No Hx HIV: No - Surgical History Hx Coronary Stent: No Hx Open Heart Surgery: No Hx Pacemaker: No Hx Internal Defibrillator: No Hx Cholecystectomy: No Hx Appendectomy: No Hx Breast Surgery: No - Family History Family history: no significant - Social History Smoking Status: Unknown if ever smoked Substance Use Type: None - Medications Home Medications: Home Medications Medication Instructions Recorded Confirmed Last Taken Type levETIRAcetam [Keppra TAB] 750 mg PO BID #60 tablet 04/07/19 Unknown Rx ED Physical Exam - General General appearance: alert, in no apparent distress - Head Head exam: Present: atraumatic, normocephalic - Eye Eye exam: Present: normal appearance, PERRL Pupils: Present: normal accommodation - ENT ENT exam: Present: mucous membranes moist - Neck Neck exam: Present: normal inspection - Respiratory Respiratory exam: Present: normal lung sounds bilaterally. Absent: respiratory distress, wheezes, rales - Cardiovascular Cardiovascular Exam: Present: regular rate, normal rhythm. Absent: systolic murmur, diastolic murmur, rubs, gallop - GI/Abdominal GI/Abdominal exam: Present: soft, normal bowel sounds. Absent: distended, tend erness, guarding - Rectal Rectal exam: Present: deferred - Extremities Exam Extremities exam: Present: normal inspection - Back Exam Back exam: Present: normal inspection - Neurological Exam Neurological exam: Present: alert, altered - Psychiatric Psychiatric exam: Present: normal affect, normal mood - Skin Skin exam: Present: warm, dry, intact, normal color. Absent: rash ED Course Vital Signs 08/29/19 08/29/19 08/29/19 11:55 12:15 12:45 Pulse Rate 79 76 Respiratory 16 17 11 L Rate Blood Pressure 108/61 108/61 O2 Sat by Pulse 96 97 Oximetry 08/29/19 08/29/19 08/29/19 13:00 13:15 13:46 Pulse Rate Respiratory Rate Blood Pressure 108/61 118/63 118/63 O2 Sat by Pulse 99 96 96 Oximetry 08/29/19 08/29/19 08/29/19 14:00 15:00 15:16 Pulse Rate Respiratory Rate Blood Pressure 120/72 118/63 123/72 O2 Sat by Pulse 96 96 98 Oximetry 08/29/19 08/29/19 08/29/19 15:30 15:46 16:11 Pulse Rate Respiratory Rate Blood Pressure 123/72 120/72 123/72 O2 Sat by Pulse 96 97 Oximetry - Reevaluation(s) Reevaluation #1: Patient is nonverbal but is able to communicate with shaking his head. Patient denies physical complaints. Patient denies dizziness. Patient denies headache. Patient denies blurry vision. Patient states he is hungry. Patient will given a p.o. diet. I discussed all results and clinical findings with patient. I discussed plan of care with patient. Patient agrees with plan of care. Patient is stable for discharge. Patient will be discharged home. Patient given discharge instructions. Patient voiced understanding of discharge instructions. Once the family arrives I will give the patient's discharge to them as well. 08/29/19 14:11 ED Medical Decision Making - Lab Data Result diagrams: 08/29/19 11:52 08/29/19 11:52 - Radiology Data Radiology results: report reviewed CT head without contrast INDICATION : sz. Acute seizure TECHNIQUE: Axial imaging performed from the skull apex through the skull base without the use of contrast. All CT scans at this location are performed using CT dose reduction for ALARA by means of automated exposure control. COMPARISON: CT abdomen from 04/05/2019 FINDINGS: Parenchyma: No acute intracranial hemorrhage or parenchymal abnormality. There is a large area of encephalomalacia in the left MCA distribution. Ventricles: Ventricles are normal in size and appear symmetric. Soft tissues: Soft tissues including the orbits appear normal. Bones: No acute osseous abnormality. Sinuses: Mild mucosal thickening in the left maxillary sinus. Remaining sinuses and mastoid air cells are clear. IMPRESSION: No acute abnormality. - Medical Decision Making Patient is a [id number]-year-old male that presents emergency room for seizure. Patient has a known history of seizure. Patient compliant with his medication. Patient family called EMS since he fell out of his wheelchair during the seizure. Patient given Keppra in the ER. Patient had labs done which were unremarkable. Patient head CT was negative for acute findings. Patient is sta ble for discharge. Patient be discharged home to the care of his family. - Differential Diagnosis Seizure. Altered mental status, postictal, post seizure confusion. Critical care attestation.: If time is entered above; I have spent that time in minutes in the direct care of this critically ill patient, excluding procedure time. ED Disposition Clinical Impression: Seizure, History of stroke Disposition: DC-01 TO HOME OR SELFCARE Is pt being admited?: No Does the pt Need Aspirin: No Condition: Stable Instructions: Epilepsy (ED), Recurrent Seizures Adult (ED) Additional Instructions: Patient to follow-up with primary care in 2 to 3 days. Patient to follow-up with neurology in 2 to 3 days. Patient to rest. Patient to increase water. Patient to avoid strenuous exercise or heavy lifting until cleared by neurologist. Patient to take Tylenol or ibuprofen as needed for pain. Patient to continue current medications. Patient did not miss any doses of his seizure medications. Patient to return to the ER if condition worsens, changes or new symptoms arise. Referrals: PRIMARY CARE, [Primary Care Provider] - 2-3 Days Time of Disposition: 14:16
[2019-08-29 13:04] LABS: Basophils % (Auto) 0.6 % (0.0-1.8); Eosinophils % (Auto) 0.6 % (0.0-4.3); Hematocrit 42.7 % (35.5-45.6); Hemoglobin 14.9 gm/dl (11.8-15.2); Lymphocytes # (Auto) 2.6 K/mm3 (1.2-5.4); Mean Corpuscular HGB Conc 35 % (32-34); Mean Corpuscular Volume 94 fl (84-94); Monocytes # (Auto) 0.5 K/mm3 (0.0-0.8); Platelet Count 332 K/mm3 (140-440); Red Blood Count 4.57 M/mm3 (3.65-5.03); Red Cell Distribution Width 13.3 % (13.2-15.2)
--- NOTE | 2019-08-29 13:26 | Cat Scan Report ---
CT head without contrast INDICATION : sz. Acute seizure TECHNIQUE: Axial imaging performed from the skull apex through the skull base without the use of con trast. All CT scans at this location are performed using CT dose reduction for ALARA by means of aut omated exposure control. COMPARISON: CT abdomen from 04/05/2019 FINDINGS: Parenchyma: No acute intracranial hemorrhage or parenchymal abnormality. There is a large area of en cephalomalacia in the left MCA distribution. Ventricles: Ventricles are normal in size and appear symmetric. Soft tissues: Soft tissues including the orbits appear normal. Bones: No acute osseous abnormality. Sinuses: Mild mucosal thickening in the left maxillary sinus. Remaining sinuses and mastoid air cell s are clear. IMPRESSION: No acute abnormality. Signer Name: Rylan Graham MD Signed: 08/29/2019 1:22 PM Workstation Name: [id number]
[2019-08-29 13:34] LABS: Alanine Aminotransferase 10 units/L (7-56); Albumin 4.3 g/dL (3.9-5); BUN/Creatinine Ratio 10; Blood Urea Nitrogen 8 mg/dL (9-20); Calcium 9.3 mg/dL (8.4-10.2); Hemolysis Index 8
[2019-08-29] MEDS ORDERED: levETIRAcetam 1000 MG/NS 0.75% 1,000 MG/100 ML BAG IV ONE (14:15)
[2019-08-29 16:15] VITALS: BP 123/72
== END 2019-08-29 16:10 | disposition home or self-care (01) ==
LOC: ED 11:40
DX: G40.909 Epilepsy, unspecified, not intractable, without status epilepticus (principal); Z79.899 Other long term (current) drug therapy; Z86.73 Personal history of transient ischemic attack (TIA), and cerebral infarction without residual deficits
CPT/HCPCS: 36415; 70450; 80053; 85025; 96374; 99284; J1953; 80320; G0480